=== PATIENT | female | born 1940 | race Caucasian/White ===

== ENCOUNTER → 2019-11-25 | Outpatient (CLI) | payer MEDICARE ==
[~2019-11-25] MED LIST: ASPI-496 PO; ATOR20TA37 PO; CALC-126 PO; CHOL10003 PO; FLEC100T PO; METF750T42 PO; METO50TA82 PO; MOEX15TA2 PO; MULT-709 PO; PANT40TA5 PO; REGADENOSON 0.4 MG/5 ML SYRINGE ONE; SAXA5TAB PO
== END | disposition home or self-care (01) ==
LOC: CFH 08:00
PROVIDERS: ATTEND Internal Medicine Cardiovascular Disease
DX: Z12.31 Encounter for screening mammogram for malignant neoplasm of breast (principal); I35.1 Nonrheumatic aortic (valve) insufficiency
CPT/HCPCS: 77063; 77067; 78452; 93017; A9502; J2785